=== PATIENT | female | born 1965 | race African-American/Black ===

== ENCOUNTER 2019-09-15 19:01 | Emergency (ER) | payer MEDICAID ==
[~2019-09-15] VITALS: Ht 154.9 cm; Wt 72.1 kg
[2019-09-15 19:18] VITALS: Ht 154.9 cm; Wt 72.1 kg
[2019-09-15 22:17] VITALS: BP 148/93
== END 2019-09-15 22:17 | disposition home or self-care (01) ==
LOC: ED 19:01
DX: N39.0 Urinary tract infection, site not specified (principal); I10 Essential (primary) hypertension; F17.210 Nicotine dependence, cigarettes, uncomplicated; I11.0 Hypertensive heart disease with heart failure; I50.9 Heart failure, unspecified; J44.9 Chronic obstructive pulmonary disease, unspecified; Z98.890 Other specified postprocedural states; Z85.038 Personal history of other malignant neoplasm of large intestine
CPT/HCPCS: 99406